=== PATIENT | male | born 1955 | race Caucasian/White ===

== ENCOUNTER 2021-07-19 09:00 | Outpatient (CLI) | payer MEDICARE, OTHER | END 2021-07-19 09:01 | disposition home or self-care (01) | LOC: BICULT 09:00 | PROVIDERS: ATTEND Family Medicine | DX: Z13.6 Encounter for screening for cardiovascular disorders (principal); Z12.2 Encounter for screening for malignant neoplasm of respiratory organs; F17.210 Nicotine dependence, cigarettes, uncomplicated | CPT/HCPCS: 71271; 76775 ==

== ENCOUNTER 2022-07-19 09:23 | Outpatient (CLI) | payer MEDICARE, OTHER | END 2022-07-19 09:24 | disposition home or self-care (01) | LOC: BICCT 09:23 | PROVIDERS: ATTEND Family Medicine | DX: Z12.2 Encounter for screening for malignant neoplasm of respiratory organs (principal); C34.32 Malignant neoplasm of lower lobe, left bronchus or lung; F17.210 Nicotine dependence, cigarettes, uncomplicated | CPT/HCPCS: 71271 ==

== ENCOUNTER 2022-08-02 09:30 | Outpatient (CLI) | payer MEDICARE, OTHER | END 2022-08-02 09:31 | disposition home or self-care (01) | LOC: PET 09:30 | PROVIDERS: ATTEND Family Medicine | DX: R91.1 Solitary pulmonary nodule (principal) | CPT/HCPCS: 78815; A9552 ==

== ENCOUNTER 2022-08-13 08:22 | Outpatient (CLI) | payer MEDICARE, OTHER ==
[2022-08-13] MEDS ORDERED: Iopamidol-370 76% 500 ML 1 ML ONE (09:36)
== END 2022-08-13 08:23 | disposition home or self-care (01) ==
LOC: BICCT 08:22
PROVIDERS: ATTEND Family Medicine
DX: N13.30 Unspecified hydronephrosis (principal); N13.4 Hydroureter; N26.1 Atrophy of kidney (terminal)
CPT/HCPCS: 74178; 82565; Q9967

== ENCOUNTER 2024-07-30 09:52 | Outpatient (CLI) | payer MEDICARE, OTHER | END 2024-07-30 09:53 | disposition home or self-care (01) | LOC: BICCT 09:52 | PROVIDERS: ATTEND Family Medicine | DX: Z12.2 Encounter for screening for malignant neoplasm of respiratory organs (principal); F17.210 Nicotine dependence, cigarettes, uncomplicated | CPT/HCPCS: 71271 ==